=== PATIENT | female | born 1985 | race Two or more races ===

== ENCOUNTER 2020-01-12 12:34 | Observation (INO) | payer OTHER ==
[~2020-01-12] VITALS: Ht 147.3 cm; Wt 54.9 kg
[2020-01-12] MEDS ORDERED: IV RINGERS,LACTATED 1000ML 1,000 ML IV SCH (13:00)
[2020-01-12] MEDS ORDERED: ACETAMINOPHEN 500 MG TABLET PO ONE (13:30)
[2020-01-12 13:39] LABS: BILIRUBIN,URINE NEGATIVE (NEG); CLARITY,URINE CLEAR; NITRITE,URINE NEGATIVE (NEG); PROTEIN,URINE NEGATIVE (NEG-TRACE); UROBILINOGEN,URINE 0.2 mg/dL (0.2 mg/dL)
[2020-01-12 13:53] LABS: COLOR,URINE STRAW; SQUAMOUS EPITHELIAL CELL,UR MANY /LPF
[2020-01-12 13:54] LABS: BACTERIA,URINE MANY /HPF (0-FEW)
[2020-01-12 13:55] LABS: RBC,URINE 0 /HPF (0-2)
== END 2020-01-12 15:00 | disposition home or self-care (01) ==
LOC: 3 SO LND 12:34
PROVIDERS: ADMIT Obstetrics & Gynecology; ATTEND Obstetrics & Gynecology
DX: O36.8130 Decreased fetal movements, third trimester, not applicable or unspecified (principal); O99.89 Other specified diseases and conditions complicating pregnancy, childbirth and the puerperium; R10.30 Lower abdominal pain, unspecified; M54.9 Dorsalgia, unspecified; Z3A.29 29 weeks gestation of pregnancy
CPT/HCPCS: 81001; 87086; G0378; G0379